=== PATIENT | male | born 1990 | race African-American/Black ===

== ENCOUNTER 2024-01-22 21:55 | Emergency (ER) | payer SELFPAY ==
[~2024-01-22] VITALS: Ht 175.3 cm; Wt 91.0 kg
[2024-01-22 21:58] VITALS: TEMP 98.1; O2SAT 96
[2024-01-22] MEDS ORDERED: ACETAMINOPHEN 325MG TABLET PO ONE (23:00)
[2024-01-22] MEDS ORDERED: LIDOCAINE HCL/PF 1% 10 MG/ML 5ML VIAL INFIL ONE (23:15)
[2024-01-22] MEDS ORDERED: BACITRACIN ZINC OINT UDPKT TOP ONE (23:15)
[2024-01-22] MEDS ORDERED: LIDOCAINE HCL/PF 1% 10 MG/ML 5ML VIAL INFIL NR (23:30)
[2024-01-23] MEDS: TETANUS, DIPHTHERIA, PERTUSSIS VAC/PF 0.5ML (>10YR OLD) IM ONE (00:25)
[2024-01-23] MEDS: ACETAMINOPHEN 325MG TABLET PO NR (00:26)
[2024-01-23] MEDS: BACITRACIN ZINC OINT UDPKT TOP NR (00:28)
[2024-01-23] MEDS ORDERED: BO1 TP (01:20)
[2024-01-23 03:49] VITALS: BP 143/95; PULSE 80; RESP 18
== END 2024-01-23 03:50 | disposition home or self-care (01) ==
LOC: ER 21:55
DX: S01.81XA Laceration without foreign body of other part of head, initial encounter (principal); X58.XXXA Exposure to other specified factors, initial encounter; Y93.89 Activity, other specified; Y92.89 Other specified places as the place of occurrence of the external cause; Y99.8 Other external cause status
CPT/HCPCS: 99285; 70450; 70486; 12015; 90715; 90471; J3490